=== PATIENT | male | born 1995 | race Caucasian/White ===

== ENCOUNTER 2016-09-27 17:50 | Emergency (ER) | payer OTHER ==
[2016-09-27 17:55] VITALS: BP 139/74
[2016-09-27] MEDS ORDERED: Ondansetron INJ* 2 MG/ML VIAL ONE (18:35)
[2016-09-27 18:41] LABS: Hematocrit 42 % (42-52); Mean Corpuscular HGB Conc 34 g/dl (31-36); Mean Corpuscular Hemoglobin 29 pg (27-31); Mean Corpuscular Volume 88 fL (80-94); Mean Platelet Volume 9 um3 (7.4-10.4); Red Blood Count 4.76 10^6/ul (4.0-5.4); Red Cell Distribution Width 13 % (10.5-15); White Blood Count 9.8 10^3/ul (3.5-10.8)
[2016-09-27 18:52] LABS: Albumin 4.4 g/dL (3.2-5.2); C Reactive Protein 28.02 mg/L (< 5.00); Calcium 9.4 mg/dL (8.6-10.3); EGFR African American 120.2 (>60); EGFR Non-African American 93.4 (>60); Globulin 3.7 g/dL (2-4); Potassium 3.8 mmol/L (3.5-5.0); Total Protein 8.1 g/dL (6.4-8.9)
--- NOTE | 2016-09-27 19:07 | RAD ---
INDICATION: Fever COMPARISON: Similar chest x-ray dated May 25 TECHNIQUE: PA and lateral views of the chest were obtained. FINDINGS: The heart and mediastinum are normal in size and contour. The lungs are grossly clear. There is no evidence of large pleural effusion. Visualized bones are normal for the patient's age. There is no radiographic evidence of free air beneath the diaphragm IMPRESSION: No radiographic evidence of acute cardiopulmonary disease.
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
== END 2016-09-27 20:05 | disposition home or self-care (01) ==
LOC: ED 17:50
DX: R11.2 Nausea with vomiting, unspecified (principal); F17.210 Nicotine dependence, cigarettes, uncomplicated
CPT/HCPCS: 36415; 71020; 80053; 83605; 85025; 86140; 86703; 87040; 99283; J2405

== ENCOUNTER 2017-01-27 17:31 | Emergency (ER) | payer OTHER ==
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
[2017-01-27] MEDS ORDERED: cefTRIAXone VIAL(*) 1,000 MG VIAL IM ONE (20:03)
[2017-01-27] MEDS ORDERED: Lidocaine 1% MPF* 2 ML VIAL INJ ONE (20:04)
== END 2017-01-27 20:49 | disposition left against medical advice (07) ==
LOC: UCEAST 17:31
DX: L03.114 Cellulitis of left upper limb (principal); L03.113 Cellulitis of right upper limb; F17.210 Nicotine dependence, cigarettes, uncomplicated; F11.20 Opioid dependence, uncomplicated
CPT/HCPCS: 96372; 99212; G0463; J0696

== ENCOUNTER 2017-01-29 12:18 | Emergency (ER) | payer OTHER ==
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
--- NOTE | 2017-01-29 14:24 | RAD ---
Indication: Evaluate for abscess in the left palm with swelling. Real-time sonography of the palmar aspect of the hand in the hyperthenar region was obtained. There is no evidence of abnormal fluid collections. Vascular structures and tendinous structures are unremarkable. IMPRESSION: No evidence of fluid collections are noted in the palmar aspect of the left hand.
[2017-01-29 14:29] VITALS: BP 107/53
[2017-01-29 14:31] LABS: Hematocrit 39 % (42-52); Mean Corpuscular HGB Conc 33 g/dl (31-36); Mean Corpuscular Hemoglobin 29 pg (27-31); Mean Corpuscular Volume 89 fL (80-94); Mean Platelet Volume 9 um3 (7.4-10.4); Red Blood Count 4.45 10^6/ul (4.0-5.4); Red Cell Distribution Width 15 % (10.5-15); White Blood Count 7.3 10^3/ul (3.5-10.8)
[2017-01-29 14:50] LABS: BUN/Creatinine Ratio 13.2 (8-20); C Reactive Protein 17.94 mg/L (< 5.00); Calcium 8.9 mg/dL (8.6-10.3); EGFR Non-African American 104.2 (>60); Globulin 3.2 g/dL (2-4); Potassium 4.3 mmol/L (3.5-5.0); Total Bilirubin 0.6 mg/dL (0.2-1.0); Total Protein 7.2 g/dL (6.4-8.9)
== END 2017-01-29 15:03 | disposition home or self-care (01) ==
LOC: ED 12:18
DX: L03.90 Cellulitis, unspecified (principal)
CPT/HCPCS: 36415; 80053; 85025; 86140; 99282

== ENCOUNTER 2017-06-03 13:46 | Inpatient (IN) | payer SELFPAY ==
[2017-06-03 14:47] LABS: Hematocrit 29 % (42-52); Hemoglobin 9.2 g/dl (14.0-18.0); Mean Corpuscular HGB Conc 32 g/dl (31-36); Mean Corpuscular Hemoglobin 28 pg (27-31); Mean Corpuscular Volume 87 fL (80-94); Mean Platelet Volume 8 um3 (7.4-10.4); Red Blood Count 3.32 10^6/ul (4.0-5.4); Red Cell Distribution Width 15 % (10.5-15); White Blood Count 11.9 10^3/ul (3.5-10.8)
[2017-06-03 14:51] LABS: Albumin 3.7 g/dL (3.2-5.2); Calcium 8.8 mg/dL (8.6-10.3); EGFR African American 155.5 (>60); EGFR Non-African American 120.9 (>60); Globulin 3.8 g/dL (2-4); Potassium 3.7 mmol/L (3.5-5.0); Total Bilirubin 0.4 mg/dL (0.2-1.0); Total Protein 7.5 g/dL (6.4-8.9)
--- NOTE | 2017-06-03 15:00 | RAD ---
INDICATION: Sepsis COMPARISON: Comparison is made with a prior x-ray study from September 27, 2016. TECHNIQUE: A portable view of the chest was obtained. FINDINGS: Cardiac and mediastinal contours appear to be within normal limits. The lungs are clear. No pleural effusion is seen. IMPRESSION: NO EVIDENCE FOR ACUTE DISEASE.
[2017-06-03] MEDS ORDERED: Vancomycin(*) 1,000 MG ADVAN IVPB ONE (15:54)
[2017-06-03] MEDS ORDERED: Vancomycin(*) 1,000 MG - ED ONCE IVPB ONE ×2 (16:00)
[2017-06-03] MEDS ORDERED: Vancomycin(*) 1,000 MG VIAL IVPB SCH (16:00)
[2017-06-03] MEDS: NS 0.9% 1000 ML* 2,500 ML IV ONE (16:04)
--- NOTE | 2017-06-03 16:24 | ED ---
Rossi Trotter Nilda, scribed for Liz Ely MD on 06/03/17 at 1421 . Lower Extremity - HPI Summary HPI Summary: This patient is a 21 year old M presenting to [facility] accompanied by brother with a chief complaint of skin infection on bilateral legs s/p injecting an unknown drug into legs for the past 2 months. He last used drugs today. Symptoms aggravated by substance abuse and alleviated by nothing. Patient reports swelling, purulence, pain, and erythema of bilateral LE, as well as fever. PMHx substance abuse (heroin). - History of Current Complaint Chief Complaint: EDGeneral Stated Complaint: RIGHT LEG ABSCESS Time Seen by Provider: 06/03/17 13:51 Hx Obtained From: Patient Mechanism Of Injury: Other - injections from substance abuse Onset/Duration: Still Present Severity Currently: Severe Pain Intensity: 0 Pain Scale Used: 0-10 Numeric Timing: Constant Location: Is Diffuse Associated Signs And Symptoms: Positive: Swelling, Redness, Fever, Other - ulceration and purulence Aggravating Factor(s): Other - substance abuse Alleviating Factor(s): Nothing - Allergies/Home Medications Allergies/Adverse Reactions: Allergies Allergy/AdvReac Type Severity Reaction Status Date / Time No Known Allergies Allergy Verified 05/19/16 11:21 PMH/Surg Hx/FS Hx/Imm Hx Endocrine/Hematology History: Denies: Hx Diabetes, Hx Thyroid Disease Cardiovascular History: Denies: Hx Hypertension Respiratory History: Reports: Hx Asthma Denies: Hx Chronic Obstructive Pulmonary Disease (COPD) GI History: Denies: Hx Ulcer Psychiatric History: Reports: Hx Substance Abuse - Surgical History Surgery Procedure, Year, and Place: None Infectious Disease History: No Infectious Disease History: Denies: Hx Clostridium Difficile, Hx Hepatitis, Hx Human Immunodeficiency Virus (HIV), Hx of Known/Suspected MRSA, Hx Shingles, Hx Tuberculosis, Hx Known/ Suspected VRE, Hx Known/Suspected VRSA, History Other Infectious Disease, Traveled Outside the [place] in Last 30 Days - Family History Known Family History: Positive: Diabetes - maternal cousin, Other - father EtOH ; grandmother Breast CA Negative: Hypertension Family History: FAM HX UNKNOWN TO PT - Social History Alcohol Use: None Hx Substance Use: Yes Substance Use Type: Reports: Heroin, Marijuana, Other Substance Use Comment - Amount & Last Used: iv drug use Hx Tobacco Use: Yes Smoking Status (MU): Heavy Every Day Tobacco Smoker Amount Used/How Often: 1/2 PPD Review of Systems Positive: Fever Positive: Edema Positive: Other - both legs and thighs: erythema, areas of ulceration, pain, and pus All Other Systems Reviewed And Are Negative: Yes Physical Exam Triage Information Reviewed: Yes Vital Signs On Initial Exam: Initial Vitals Temp Pulse Resp BP Pulse Ox 99 F 81 16 125/65 100 06/03/17 13:49 06/03/17 13:49 06/03/17 13:49 06/03/17 13:49 06/03/17 13:49 Vital Signs Reviewed: Yes Appearance: Positive: Well-Appearing, No Pain Distress Skin: Positive: Warm, Skin Color Reflects Adequate Perfusion, Dry Eyes: Positive: EOMI, SHANE, Other: - pupils 5 mm in diameter ENT: Positive: Pharynx normal, TMs normal Neck: Positive: Supple, Nontender Respiratory/Lung Sounds: Positive: Clear to Auscultation, Breath Sounds Present. Negative: Rales, Rhonchi, Wheezes Cardiovascular: Positive: Tachycardia, Other - no gallop. Negative: Murmur, Rub Abdomen Description: Positive: Nontender, Soft, Other: - no rebound. Negative: Distended, Guarding Bowel Sounds: Positive: Present Musculoskeletal: Positive: Strength/ROM Intact, Other - extensive edema and erythema to both legs and thighs, multiple areas of ulceration, discharge of pus from wounds with palpation Neurological: Positive: Sensory/Motor Intact, Alert, Oriented to Person Place, Time, CN Intact II-III Psychiatric: Positive: Affect/Mood Appropriate Diagnostics - Vital Signs Vital Signs Temp Pulse Resp BP Pulse Ox 06/03/17 13:49 99 F 81 16 125/65 100 - Laboratory Lab Results: Lab Results 06/03/17 06/03/17 06/03/17 Range/Units 14:21 14:21 14:21 WBC 11.9 H (3.5-10.8) 10^3/ul RBC 3.32 L (4.0-5.4) 10^6/ul Hgb 9.2 L (14.0-18.0) g/dl Hct 29 L (42-52) % MCV 87 (80-94) fL MCH 28 (27-31) pg MCHC 32 (31-36) g/dl RDW 15 (10.5-15) % Plt Count 348 (150-450) 10^3/ul MPV 8 (7.4-10.4) um3 Neut % (Auto) 80.9 (38-83) % Lymph % (Auto) 10.0 L (25-47) % Wheeler % (Auto) 7.7 (1-9) % Eos % (Auto) 1.3 (0-6) % Baso % (Auto) 0.1 (0-2) % Absolute Neuts (auto) 9.7 H (1.5-7.7) 10^3/ul Absolute Lymphs (auto) 1.2 (1.0-4.8) 10^3/ul Absolute Monos (auto) 0.9 H (0-0.8) 10^3/ul Absolute Eos (auto) 0.2 (0-0.6) 10^3/ul Absolute Basos (auto) 0 (0-0.2) 10^3/ul Absolute Nucleated RBC 0 10^3/ul Nucleated RBC % 0 INR (Anticoag Therapy) 1.21 H (0.89-1.11) APTT 33.3 (26.0-36.3) seconds Sodium 135 (133-145) mmol/L Potassium 3.7 (3.5-5.0) mmol/L Chloride 100 L (101-111) mmol/L Carbon Dioxide 28 (22-32) mmol/L Anion Gap 7 (2-11) mmol/L BUN 8 (6-24) mg/dL Creatinine 0.80 (0.67-1.17) mg/dL Est GFR ( Amer) 155.5 (>60) Est GFR (Non-Af Amer) 120.9 (>60) BUN/Creatinine Ratio 10.0 (8-20) Glucose 106 H (70-100) mg/dL Lactic Acid (0.5-2.0) mmol/L Calcium 8.8 (8.6-10.3) mg/dL Total Bilirubin 0.40 (0.2-1.0) mg/dL AST 23 (13-39) U/L ALT 25 (7-52) U/L Alkaline Phosphatase 78 (34-104) U/L Troponin I 0.00 (<0.04) ng/mL Total Protein 7.5 (6.4-8.9) g/dL Albumin 3.7 (3.2-5.2) g/dL Globulin 3.8 (2-4) g/dL Albumin/Globulin Ratio 1.0 (1-3) 06/03/17 Range/Units 14:21 WBC (3.5-10.8) 10^3/ul RBC (4.0-5.4) 10^6/ul Hgb (14.0-18.0) g/dl Hct (42-52) % MCV (80-94) fL MCH (27-31) pg MCHC (31-36) g/dl RDW (10.5-15) % Plt Count (150-450) 10^3/ul MPV (7.4-10.4) um3 Neut % (Auto) (38-83) % Lymph % (Auto) (25-47) % Wheeler % (Auto) (1-9) % Eos % (Auto) (0-6) % Baso % (Auto) (0-2) % Absolute Neuts (auto) (1.5-7.7) 10^3/ul Absolute Lymphs (auto) (1.0-4.8) 10^3/ul Absolute Monos (auto) (0-0.8) 10^3/ul Absolute Eos (auto) (0-0.6) 10^3/ul Absolute Basos (auto) (0-0.2) 10^3/ul Absolute Nucleated RBC 10^3/ul Nucleated RBC % INR (Anticoag Therapy) (0.89-1.11) APTT (26.0-36.3) seconds Sodium (133-145) mmol/L Potassium (3.5-5.0) mmol/L Chloride (101-111) mmol/L Carbon Dioxide (22-32) mmol/L Anion Gap (2-11) mmol/L BUN (6-24) mg/dL Creatinine (0.67-1.17) mg/dL Est GFR ( Amer) (>60) Est GFR (Non-Af Amer) (>60) BUN/Creatinine Ratio (8-20) Glucose (70-100) mg/dL Lactic Acid 0.9 (0.5-2.0) mmol/L Calcium (8.6-10.3) mg/dL Total Bilirubin (0.2-1.0) mg/dL AST (13-39) U/L ALT (7-52) U/L Alkaline Phosphatase (34-104) U/L Troponin I (<0.04) ng/mL Total Protein (6.4-8.9) g/dL Albumin (3.2-5.2) g/dL Globulin (2-4) g/dL Albumin/Globulin Ratio (1-3) Result Diagrams: 06/03/17 14:21 06/03/17 14:21 Lab Statement: Any lab studies that have been ordered have been reviewed, and results considered in the medical decision making process. - Radiology CXR Radiology Interpretation Completed By: Radiologist - NAD. ED physician reviewed this report and agrees. - EKG 1426 Cardiac Rate: NL - 84 bpm EKG Rhythm: Sinus Rhythm Ectopy: : PVCs Re-Evaluation - Re-Evaluation First Eval Re-Evaluation Time: 16:11 Comment: Spoke to patient about pain management. He would like to use methadone and be weaned off methadone. Lower Extremity Course/Dx - Course Course Of Treatment: [1540] Dr. Toure (hospitalist) agrees to admit patient. 21 yo male injecting "euphoria" into his legs and thighs with subsequent cellulitis and necrotic areas to these areas. Pt started on vanco seen by Dr. Fink/Natalie and admitted by Mesfin/Xi. Pt wants to wean off opiates by taking 15mg of methadone and weaning off during stay here he does not want to go on any other substance - Diagnoses Provider Diagnoses: Cellulitis, IVDU (intravenous drug user) - Physician Notifications Discussed Care Of Patient With: Gerri VALLES for Surgical Unit Time Discussed With Above Provider: 14:20 Instructed by Provider To: Other - agrees to admission to hospitalist and surgical consult. Discharge - Discharge Plan Condition: Stable Disposition: ADMITTED TO [facility] Referrals: Beti Villarreal MD [Primary Care Provider] - The documentation as recorded by the Rossi swenson Nilda accurately reflects the service I personally performed and the decisions made by me, Liz Ely MD.
[2017-06-03] MEDS ORDERED: NS 0.9% 1000 ML* 1,000 ML IV SCH (16:30)
[2017-06-03] MEDS ORDERED: Ondansetron INJ* 2 MG/ML VIAL IV PRN (16:32)
[2017-06-03] MEDS ORDERED: Acetaminophen TAB* 325 MG PO PRN (16:32)
[2017-06-03] MEDS ORDERED: LORazepam INJ* 2 MG/ML 1 ML VIAL IV PUSH PRN (16:40)
[2017-06-03] MEDS ORDERED: cloNIDine TAB* 0.1 MG PO PRN (16:44)
[2017-06-03] MEDS ORDERED: Vancomycin per Pharmacy* NOTE FOLLOW UP PRN (16:45)
[2017-06-03] MEDS ORDERED: Methadone TAB* 10 MG PO ONE ×2 (16:46→16:47)
[2017-06-03 16:53] LABS: C Reactive Protein 166.02 mg/L (< 5.00)
[2017-06-03] MEDS ORDERED: Vancomycin(*) 1,000 MG in NS 0.9% 250 ML* 250 ML IVPB SCH (17:00)
[2017-06-03 17:42] LABS: Urine Bilirubin Negative (Negative); Urine Glucose Negative (Negative); Urine Nitrite Negative (Negative)
[2017-06-03 17:47] LABS: Benzodiazepine Urine Screen None Detected (None Detect)
[2017-06-03] MEDS: Enoxaparin(*) 40 MG/0.4 ML SYR SUBCUT SCH (18:08)
--- NOTE | 2017-06-03 21:52 | HP ---
MEDICINE HISTORY AND PHYSICAL: DATE OF ADMISSION: 06/03/17 PROVIDER: Shreya Clemons NP ATTENDING PHYSICIAN: Ayala Toure MD* (dictated by Shreya Clemons NP) PRIMARY CARE PROVIDER: None. CONSULTING PHYSICIANS: Pasquale Flores MD, Infectious Disease and Kwame Fink MD, Surgery. CHIEF COMPLAINT: Leg wounds. HISTORY OF PRESENT ILLNESS: This is a 21-year-old male patient, originally from [place], who presents to the emergency department today with chief complaint of skin infection to the bilateral legs after injecting an unknown drug into his leg for the past 2 months. The patient states that he was using an opiate-like medication that may contain fentanyl, possibly mixed with what he calls "bad heroin." Nursing staff and ED provider state that the patient has referred to this medication as both Krokodil and euphoria. The patient's onset of leg wounds started approximately 2 months ago potentially longer, but the patient endorses 2 months as when he started treating the legs at home. He states that he was encouraging drainage by squeezing and prodding at the wounds , cleaning them, and then wrapping the legs with bandages. He is also being crushing a medication that he obtained from [place] and placing it in the wound. The medication is called Streptocidum. He reports subjective fever and chills that have been off and on though he cannot tell me the time of this. He states that on occasions his heart fells like it is racing and on occasions, he feels like there is pressure in his chest, which he attributes to heartburn. The patient states that he is frustrated and he would have sought treatment sooner, but he has not had insurance. He has been trying to obtain insurance, but this has been difficult for him and has prevented him from getting on maintenance medications for his opiate addiction as well as prevented him from getting into a detox program. Here in the ED, the patient was seen by the surgery group who agreed for admission and recommended that the patient be seen in consultation by the wound clinic. He will most likely also need debridement, but they will continue the consultation to tomorrow. In regards to the patient's labs, he has a WBC count of 11.9, H and H of 9.2 and 29 and a CRP of 166. PAST MEDICAL HISTORY: Significant for opiate abuse. HOME MEDICATIONS: None. ALLERGIES: No known allergies. FAMILY HISTORY: Reviewed and noncontributory. SOCIAL HISTORY: The patient reports social tobacco use. He denies alcohol use. He is an opiate injector using the aforementioned drugs as well as marijuana. His last injection was 6 a.m. this morning. He is currently staying with a friend. He does have local family. His mother, Yandy Fisher, is his surrogate decision maker in the event of emergency. REVIEW OF SYSTEMS: As per HPI. PHYSICAL EXAMINATION GENERAL: This is a well appearing, interactive, young male, who is sitting up in the ED stretcher, in no acute distress. VITAL SIGNS: Temperature 99, heart rate 75, respiratory rate 16, blood pressure 118/49, and O2 saturation is 100% on room air. HEENT: Head is atraumatic, normocephalic. Face is symmetrical. Pupils are equal, round and reactive to light. Extraocular muscles are intact. Pupils are 5 mm in diameter. Oral mucosa appears to be moist. There is no oropharyngeal exudate or erythema. NECK: Supple. No lymphadenopathy appreciated. PULMONARY: Lungs are clear to auscultation. No accessory muscle use. CARDIAC: S1, S2 heart sounds. Regular rate and rhythm. There is a soft systolic murmur heard best along the right upper sternal border. There is no peripheral edema. Distal pulses are present and 2+. ABDOMEN: Soft, nontender, nondistended. Bowel sounds are normoactive. MUSCULOSKELETAL: The patient has full range of motion. EXTREMITIES: Multiple areas of ulceration with necrosis noted to the left upper thigh. There was localized edema at the site of the wounds as well as noted pus and discharge from the right lower upper extremity wounds along the inner thigh when palpated. Wounds extend from thighs into the lower legs. NEURO: No focal deficits. Cranial nerves II through XII are grossly intact. The patient moves all extremities. PSYCH: He is alert and oriented x3. The patient's insight is very poor. Affect is mostly appropriate. LABORATORY DATA/DIAGNOSTIC STUDIES: CBC: WBC 11.9, hemoglobin 9.2, hematocrit 29, platelet count 348. CMP: Sodium 135, potassium 3.7, chloride 100, carbon dioxide 28, BUN 8, creatinine 0.8, glucose 106. Lactic acid 0.9. Calcium 8.8. Total bilirubin 0.4, AST 23, ALT 25, alk phos 78. Troponin 0.00. CRP 166. EKG reviewed, shows normal sinus rhythm with rate of 84, no ST or T wave changes. Chest x-ray shows no evidence for acute disease. ASSESSMENT AND PLAN: This is a 21-year-old male patient who presents today with leg ulcerations or wounds secondary to opiate injection. He will be admitted to the Medicine for: 1. Multiple leg wounds and ulcerations. Admit to Medicine. The patient has been started on vancomycin in the ER and we will continue him on the vanco as well as Zosyn. I have requested an ID consult. Surgery is following and we will reevaluate tomorrow as well as consult the wound clinic. Additionally, a wound culture has been obtained. I have collected drainage from the wounds along the right upper thigh and I am awaiting culture results. Blood cultures have also been drawn. The patient will require long-term care in regards to these wounds. 2. History of opiate abuse. The patient follows with Dr. Ely in the outpatient clinic for injection users here in [place]. He has been started on methadone to help lessen the symptoms of withdrawal. The patient has previously been on Suboxone, but had problems with the Suboxone, did not tolerate the medication well. He has previously utilized methadone to help him get through the withdrawal and was tapered off the methadone. He was hoping not to use narcotics if possible. The patient received the first dose of methadone here in the ER. At this point in time, I will continue him on 15 mg and request a consult with Dr. Win tomorrow in order to help us determine how to taper the patient off of the medication safely prior to discharge. Additionally, I have ordered p.r.n. clonidine and lorazepam to be used as needed. Given that the patient is at risk for endocarditis, a transthoracic echocardiogram has been ordered. Additionally, I have added on HIV and hep C screening given his heavy injection history. 3. FEN. The patient is ordered with continuous fluids for hemodynamic support as well as a regular diet. 4. DVT prophylaxis. Subcu Lovenox. 5. Code status. He is a full code. TIME SPENT: Time spent on this admission was greater than 65 minutes with more than half the time spent [id number] with the patient obtaining history and physical, performing the physical examination, and reviewing the plan of care. Plan of care was reviewed with my attending, Dr. Toure, who is in agreement. SHREYA CLEMONS NP ADDENDUM TO HISTORY AND PHYSICAL: Jas Fisher is a 21-year-old male with history of drug use who presents complaining of leg wounds. The patient has bilateral leg cellulitis, small abscesses, healing ulcers on bilateral legs due to history of chronic narcotic use and injecting in his lower extremity. Surgery was consulted on the patient. Recommended for the time being intravenous antibiotics. the patient in the morning. For the time being, we are going to treat him with broad- spectrum IV antibiotics and blood cultures are going to be obtained. For further details of the patient's presentation and plan, please see history and physical dictated by Shreya Clemons on 06/03/17, with which I agree. Ayala Toure MD [id number]/CPS #: [id number]/CPS #: [id number] CHIKIS
[2017-06-03] MEDS: Vancomycin(*) 1,000 MG in NS 0.9% 250 ML* 250 ML IVPB SCH (22:32)
--- NOTE | 2017-06-03 22:58 | HP ---
HISTORY AND PHYSICAL: ADDENDUM: Jas Fisher is a 21-year-old male with history of drug use who presents complaining o f leg wounds. The patient has bilateral leg cellulitis, small abscesses, healing ulcers on bilatera l legs due to history of chronic narcotic use and injecting in his lower extremity. Surgery was con sulted on the patient. Recommended for the time being intravenous antibiotics. the patient in the morning. For the time being, we are going to treat him with broad- spectrum IV antibiotics a nd blood cultures are going to be obtained. For further details of the patient's presentation and p tom, please see history and physical dictated by Izzy Layne on 06/03/17, with which I agree. [id number]/[facility] #: [id number]
[2017-06-04] MEDS ORDERED: Mouth Piece, Nicotine* 1 EACH CARTRIDGE INH ONE (05:04)
[2017-06-04] MEDS ORDERED: LORazepam INJ* 2 MG/ML 1 ML VIAL IV PUSH ONE (05:06)
[2017-06-04] MEDS ORDERED: LORazepam INJ* 2 MG/ML 1 ML VIAL ONE (05:10)
[2017-06-04] MEDS ORDERED: Morphine INJ* 4 MG/ML 1 ML CARPUJECT ONE (05:11)
[2017-06-04] MEDS: Morphine INJ* 4 MG/ML 1 ML CARPUJECT IV PRN ×3 (05:27→20:55)
[2017-06-04] MEDS: Nicotine Inhaler* 10 MG AMP INH PRN (05:28)
[2017-06-04] MEDS: CMCS: Melatonin (NF) 3 MG TAB PO SCH ×2 (05:40→21:32)
[2017-06-04] MEDS: Vancomycin(*) 1,000 MG in NS 0.9% 250 ML* 250 ML IVPB SCH ×2 (07:26→16:27)
[2017-06-04] MEDS ORDERED: Vancomycin Trough Check NOTE FOLLOW UP ONE ×2 (09:30→13:00)
--- NOTE | 2017-06-04 09:34 | PN ---
Hospitalist Progress Note Wounds on admission, from 06/03/17
[2017-06-04] MEDS ORDERED: ZOSYN 3.375 GM Q6H - Intermittant 30 min Infusion IVPB SCH ×2 (10:00)
[2017-06-04] MEDS: Methadone TAB* 10 MG PO SCH ×3 (10:35→20:54)
[2017-06-04] MEDS: Nicotine PATCH 21 MG/24 HR* PATCH TRANSDERM SCH (10:35)
--- NOTE | 2017-06-04 13:19 | ECHO ---
Patient: JOSEPH GIORDANO [facility] Rec#: [id number] : 1995 Date: 06/04/2017 Age: 21y Height: 182.88 cm / 72.0 in Weight: 71.67 kg / 158.0 lbs Sex: M BSA: 1.93 Room#: [facility] Admit Date#: 06/03/2017 Type: Inpatient Referring: Izzy Layne Reading: Jamie Rodriguez MD Milk Drying Machine Operator: Janine Olivas COREY CC: Beti Villarreal MD CC: Pasquale Flores MD Transthoracic Echocardiogram Indication: Murmur BP: 100/33 HR: 65 Rhythm: NSR Findings History: Heroin IVDA,smoker,soft systolic murmur at right upper sternal border, cellulitis with + wound culture = MRSA. Technical Comments: The study quality is good. Completed at 1230. Left Ventricle: The left ventricular chamber size is normal. There is normal left ventricular systolic function. The estimated ejection fraction is 55-60%. Normal left ventricular diastolic filling is observed. Left Atrium: The left atrium is normal in size. Right Ventricle: The right ventricular cavity size is normal. The right ventricular global systolic function is normal. Right Atrium: The right atrial cavity size is normal. Aortic Valve: The aortic valve is trileaflet. There is no evidence of aortic valve thickening. There is no aortic vegetation present. Mitral Valve: The mitral valve leaflets are mildly thickened. There is no evidence of mitral regurgitation. There is no evidence of mitral stenosis. No vegetation is observed on the mitral valve. Tricuspid Valve: The tricuspid valve leaflets are normal. There is a physiologic tricuspid regurgitation. Unable to estimate the right ventricular systolic pressure. There is no tricuspid stenosis. No vegetation is observed on the tricuspid valve. Pulmonic Valve: The pulmonic valve appears normal. There is no evidence of pulmonic regurgitation. There is no pulmonic stenosis. No vegetation is observed on the pulmonic valve. Pericardium: The pericardium appears normal. Aorta: There is no dilatation of the ascending aorta. There is no dilatation of the aortic arch. There is no dilation of the aortic root. Pulmonary Artery: The main pulmonary artery appears normal. Venous: The inferior vena cava appears normal in size. There is a greater than 50% respiratory change in the inferior vena cava dimension. Summary: There was not any prior study for comparison. Conclusions The left ventricular chamber size is normal. There is normal left ventricular systolic function. The estimated ejection fraction is 55-60%. There is a physiologic tricuspid regurgitation. Unable to estimate the right ventricular systolic pressure. No obvious intracavitary masses, clots or vegetations Measurements Name Value Normal Range RVIDd (AP) 2D 2.2 cm (0.9 - 2.6) RVDdMajor (2D) 4.3 cm (2.2 - 4.4) RAd ISD 4CH 4.4 cm (3.4 - 4.9) RA (A4C)W 4.6 cm (2.9 - 4.6) IVSd (2D) 1 cm (0.6 - 1) LVPWd (2D) 1 cm (0.6 - 1) LVIDd (2D) 5 cm (3.6 - 5.4) LVIDs (2D) 3.3 cm - LV FS (2D) 35 % (25 - 45) Aortic Annulus 2 cm (1.4 - 2.6) Ao root diameter (2D) 2.9 cm (2.1 - 3.5) Ascending Ao 2.4 cm (2.1 - 3.4) Aortic arch 2.6 cm (1.8 - 3.4) Descending Ao 1.1 cm - LA dimension (AP) 2D 2.8 cm (2.3 - 3.8) LAd ISD 4CH 3.7 cm (2.9 - 5.3) LA ISD 4CH W 4 cm (2.5 - 4.5) Name Value Normal Range LA ESV SP 4CH (A/L) 39 ml - LA ESV SP 2CH (A/L) 32 ml - LA ESV BP (A/L) 36 ml - LA ESV BP (A/L) index 18.6 ml/m2 - LA ESV SP 4CH (MOD) 30 ml - LA ESV SP 2CH (MOD) 28 ml - Name Value Normal Range MV E-wave Vmax 1 m/sec - MV deceleration time 271 msec - MV A-wave Vmax 0.47 m/sec - MV E:A ratio 2.05 ratio - LV septal e' Vmax 0.16 m/sec - LV lateral e' Vmax 0.22 m/sec - LV E:e' septal ratio 6.25 ratio - LV E:e' lateral ratio 4.54 ratio - Name Value Normal Range AV Vmax 1.6 m/sec - AV VTI 37.6 cm - AV peak gradient 10.78 mmHg - AV mean gradient 5.19 mmHg - LVOT Vmax 1.2 m/sec - LVOT VTI 25.1 cm - LVOT peak gradient 5.94 mmHg - LVOT mean gradient 2.56 mmHg - Name Value Normal Range IVC diameter 2.1 cm - Name Value Normal Range PV Vmax 1.1 m/sec - PV peak gradient 4.67 mmHg -
[2017-06-04] MEDS: LORazepam INJ* 2 MG/ML 1 ML VIAL IV PUSH PRN (16:10)
[2017-06-04] MEDS: ZOSYN 3.375 GM Q8H per EXTENDED INFUSION IVPB SCH ×2 (16:10)
--- NOTE | 2017-06-04 17:49 | PN ---
Subjective Date of Service: 06/04/17 Interval History: Pt attests to pain in legs. Shaky on feet. Attests he does not know if he can last the weekend in the hospital. IV access was lost, eventually got an left EJ. ID consult. Objective Active Medications: Acetaminophen (Tylenol Tab*) 650 mg PO Q4H PRN PRN Reason: FEVER/PAIN Last Admin: 06/03/17 22:04 Dose: 650 mg Clonidine HCl (Catapres Tab*) 0.1 mg PO Q4H PRN PRN Reason: WITHDRAWAL SYMPTOMS Collagenase (Santyl 250 Mg/Gm Oint*) 1 applic TOPICAL DAILY [facility] Enoxaparin Sodium (Lovenox(*)) 40 mg SUBCUT Q24H [facility] Last Admin: 06/03/17 18:08 Dose: 40 mg Sodium Chloride (Ns 0.9% 1000 Ml*) 1,000 mls @ 100 mls/hr IV PER RATE [facility] Last Admin: 06/03/17 18:22 Dose: 100 mls/hr Piperacillin Sod/Tazobactam (Sod 3.375 gm/ Sodium Chloride) 100 mls @ 25 mls/ hr IVPB Q8H [facility] Last Admin: 06/04/17 16:10 Dose: 25 mls/hr Lorazepam (Ativan Inj*) 1 mg IV PUSH Q6H PRN PRN Reason: ANXIETY Last Admin: 06/04/17 16:10 Dose: 1 mg Melatonin (Melatonin (Nf)) 3 mg PO BEDTIME [facility] Last Admin: 06/04/17 05:40 Dose: Not Given Methadone HCl (Dolophine Tab*) 10 mg PO Q12H [facility] Last Admin: 06/04/17 10:52 Dose: 10 mg Morphine Sulfate (Morphine Inj (Syringe)*) 4 mg IV Q4H PRN PRN Reason: PAIN Last Admin: 06/04/17 16:21 Dose: 4 mg Nicotine (Nicotine Inhaler*) 10 mg INH Q2H PRN PRN Reason: CRAVING Last Admin: 06/04/17 05:28 Dose: 10 mg Nicotine (Nicotine Patch 21 Mg/24 Hr*) 1 patch TRANSDERM DAILY [facility] Last Admin: 06/04/17 10:35 Dose: 1 patch Ondansetron HCl (Zofran Inj*) 4 mg IV Q4H PRN PRN Reason: NAUSEA/VOMITING Pharmacy Profile Note (Nicotine Patch Removal Note*) 1 note FOLLOW UP [address] Vital Signs 06/03/17 06/03/17 06/03/17 17:53 20:00 22:03 Temperature 98.2 F 98.4 F Pulse Rate 78 73 Respiratory 16 16 18 Rate Blood Pressure 110/54 95/29 (mmHg) O2 Sat by Pulse 100 100 Oximetry 06/03/17 06/04/17 06/04/17 22:09 03:03 05:25 Temperature 99.7 F Pulse Rate 70 Respiratory 16 18 Rate Blood Pressure 98/45 100/33 (mmHg) O2 Sat by Pulse 100 Oximetry 06/04/17 06/04/17 06/04/17 05:27 06:25 07:50 Temperature 98.1 F Pulse Rate 74 Respiratory 20 16 20 Rate Blood Pressure 113/46 (mmHg) O2 Sat by Pulse 100 Oximetry 06/04/17 06/04/17 06/04/17 10:52 11:28 12:52 Temperature 97.1 F Pulse Rate Respiratory 20 20 Rate Blood Pressure (mmHg) O2 Sat by Pulse Oximetry 06/04/17 06/04/17 16:10 16:21 Temperature Pulse Rate Respiratory 16 16 Rate Blood Pressure (mmHg) O2 Sat by Pulse Oximetry Oxygen Devices in Use Now: None Appearance: shaky on feet. conversant but slow. Eyes: No Scleral Icterus, PERRLA Ears/Nose/Mouth/Throat: NL Teeth, Lips, Gums, Mucous Membranes Moist Neck: NL Appearance and Movements; NL JVP, Trachea Midline Respiratory: Symmetrical Chest Expansion and Respiratory Effort, Clear to Auscultation Cardiovascular: NL Sounds; No Murmurs; No JVD, RRR Abdominal: NL Sounds; No Tenderness; No Distention, No Hepatosplenomegaly Extremities: No Edema Skin: - - Dozens of ulcerations, some with purulent material on b/l medial thighs and calfs, extending to groin and just above ankles. Erythema. Neurological: NL Muscle Strength and Tone, - - oriented x3 Result Diagrams: 06/03/17 14:21 06/03/17 14:21 Additional Lab and Data: Laboratory Results - last 24 hr 06/03/17 14:21 Hepatitis C Antibody Nonreactive HIV 1&2 Antibody Nonreactive Microbiology and Other Data: Microbiology 06/03/17 16:00 Thigh Left Skin and Soft Tissue MRSA/MSSA (PCR - Final Mrsa Negative S.aureus Positive 06/03/17 16:00 Thigh Left Gram Stain - Final 06/03/17 16:00 Thigh Left Wound Culture - Preliminary Enterobacter Cloacae Staphylococcus Aureus 06/03/17 15:15 Blood Venous Aerobic Blood Culture - Preliminary No Growth Day 1 06/03/17 15:15 Blood Venous Anaerobic Blood Culture - Preliminary No Growth Day 1 06/03/17 14:21 Blood Venous Aerobic Blood Culture - Preliminary No Growth Day 1 06/03/17 14:21 Blood Venous Anaerobic Blood Culture - Preliminary No Growth Day 1 Assess/Plan/Problems-Billing Assessment: 21 year old [place] male skin popping with Krokidil and euphoria p/w with several weeks of b/l medical leg ulcers with purulent drainage. Enterobacter Cloacae and MS Staph Aureus. IV zosyn. Methadone. - Patient Problems (1) Multiple wounds of skin Current Visit: Yes Status: Acute Code(s): R23.8 - OTHER SKIN CHANGES SNOMED Code(s): 947717695 Comment: appreciete ID recs Enterobacter Cloacae, MSSA Continue Zosyn. get CT scan of legs in few days. f/u Surgical recs (2) Drug abuse, daily use Current Visit: Yes Status: Acute Code(s): F19.10 - OTHER PSYCHOACTIVE SUBSTANCE ABUSE, UNCOMPLICATED SNOMED Code(s): 311408214 Comment: continue methadone 10 mg q12 and prn ativan skin popping krokodil, euphoria TTE w/o e/o vegetation. (3) Smoker Current Visit: Yes Status: Acute Code(s): F17.200 - NICOTINE DEPENDENCE, UNSPECIFIED, UNCOMPLICATED SNOMED Code(s): 07766792 Comment: continue nicotine patch, inhaler Status and Disposition: medicine inpatient. needing IV antibiotics. Attending: Mario Gonzales
[2017-06-04] MEDS: Enoxaparin(*) 40 MG/0.4 ML SYR SUBCUT SCH (18:21)
[2017-06-04] MEDS: Collagenase 250 MG/GM OINT* 30 GM TOPICAL SCH (18:28)
[2017-06-04] MEDS: Nicotine Patch Removal NOTE FOLLOW UP SCH (21:31)
--- NOTE | 2017-06-04 21:46 | CONS ---
CONSULTATION REPORT: DATE OF CONSULT: 06/04/17 REQUESTING PROVIDER: Izzy Layne NP CONSULTING SERVICE: Infectious Disease. REASON FOR CONSULTATION: Cellulitis. IMPRESSION: 1. Bilateral lower extremity cellulitis with multiple chronic nonhealing, non- pressure related wou nds on the thighs and lower extremities on the sites of previous skin popping, somewhat purulent tevin inage. Gram-stain showed Gram positive cocci, Gram positive bacilli, Gram negative bacilli. PCR is positive for staph aureus, negative for methicillin-resistance. 2. Opioid dependence in brief remission. RECOMMENDATIONS: 1. Stop vancomycin. Continue Zosyn. Surgical consultation and wound care. 2. Methadone maintenance program. 3. HIV and hep C antibody. HISTORY OF PRESENT ILLNESS: This is a 21-year-old man with longstanding opioid dependence, admitted with bilateral lower extremity wounds and swelling. He has had these wounds for over 2 months he s aid on the sites of previous skin popping in his thighs and legs bilaterally. He has had redness, p ain, and swelling around them, some on both legs have significant purulent drainage over the last fe w days. He has had occasional chills, fever, sweats. He had been using topical over-the- counter tr eatments over the last couple of weeks. He came to the hospital yesterday because of worsening pain . He was started on vancomycin and Zosyn, which he is tolerating well. He has had no fever here. Wound cultures back with staph aureus. PAST MEDICAL HISTORY: Opioid dependence. MEDICATIONS: 1. Tylenol. 2. Enoxaparin. 3. Ativan. 4. Melatonin. 5. Methadone. 6. Nicotine inhaler, nicotine patch. 7. Zosyn 3.375 g IV every 6 hours. 8. Vancomycin 1 g IV every 6 hours. ALLERGIES: No known drug allergies. FAMILY HISTORY: No tuberculosis. SOCIAL HISTORY: [place], injecting some fentanyl and other adulterant mixed through skin popping. REVIEW OF SYSTEMS: A 14-point review of systems was negative, except as noted above. PHYSICAL EXAM: Vital Signs: Temperature is 37, heart rate 70, respiratory rate 20, blood pressure 113/46, O2 sat 100% on room air. In general, he is awake, not in distress. Neurologic: He is orie nted x3. Follows all commands. HEENT: There is no conjunctival hemorrhage. Oropharynx without le sions. Neck is supple without nuchal rigidity. Lymph Nodes: There is no inguinal, axillary, or ep itrochlear lymphadenopathy. Heart is regular rate and rhythm without murmurs, rubs, or gallops. Ana Maria ngs are clear to auscultation bilaterally. Abdomen: Soft, nontender, and nondistended. There are bowel sounds present. Skin: Bilateral lower extremity diffuse erythema and edema in both legs with medial lower leg and thigh ulcerations between 2 and 3 cm each, some with small eschars, some with purulent drainage, no crepitus. DIAGNOSTIC STUDIES/LAB DATA: White blood cell count 11.9, hemoglobin 9, platelets 348. Creatinine is 0.8. CRP 166. Urinalysis negative. Urine tox screen negative. HIV and hep C antibody negative . Please see impressions and recommendations outlined above. Thank you for asking me to see Mr. Fisher in consultation. [id number]/[facility] #: [id number]
--- NOTE | 2017-06-04 22:03 | CONS ---
CC: [facility]; Dr. Beti Villarreal SURGICAL CONSULTATION REPORT: DATE OF CONSULT: 06/04/17 HISTORY OF PRESENT ILLNESS: Jas is a nice 21-year-old gentleman, who brought himself into the [facility] room yesterday because of worsening bilateral lower leg wounds secondary to skin popping of a newer opiate into his skin because of his failure to be able to inject into his veins. The patient states he has been doing this for the past 2 month at [facility] in this fashion. He is a longstanding heroin user, who had sometime off, only restarted again recently. Moving around his legs from spot to spot where the injury is not as bad. He describes injecting approximately 60 cc into the skin ev paulino 2 to 3 days for approximately a 72-hour high. The legs would show wounding and this would be so mewhat superficial. He would clean this in the bathtub with soap and often using Jacuzzi to do so a nd move to other portions of the legs. He presented because of one area at the right lower leg was more painful than usual and also purulent drainage at the upper most. Here on multiple occasions, rachael nugent has had purulent drainage that he has expressed on his own. He noted that these wounds do communi sohan with each other and he had been watching this. Additionally, friends have told him to come int o the hospital. His last high was approximately 3 days ago. He describes that last night was diffi cult and he wanted to sign out AMA. The patient feels that the areas are somewhat better than at their worse, which was approximately 2 to 3 days ago. PAST MEDICAL HISTORY: No significant past medical history. PHYSICAL EXAM: He is afebrile and has been so since arrival. Normal heart rate. Blood pressure nor mal. He is alert and oriented x3, in no apparent distress. Neck shows no lymphadenopathy. Arms sh ow no evidence of lesions. Legs bilaterally show multiple areas of ulcerations and eschar with nohemy ration and skin changes. There is tenderness along these ulcers, but no crepitus. The patient did have active drainage from one of the openings in the right upper thigh. I expressed approximately a tablespoon of pus from this site, it is foul smelling. The patient had cultures taken yesterday an d is consistent with staph aureus. The patient is currently being treated with Zosyn. The patient has been treating the wounds by expressing pus, doing Jacuzzis, and putting in some agen ts that helps to dry off the wound. DIAGNOSTIC STUDIES/LAB DATA: Labs reviewed, show a white count of 11.9. Chemistry panel shows norm al BUN and creatinine. Elevated CRP of 166. Toxicology shows none detected consistent with the fly brewer's story. IMPRESSION: A 21-year-old male with opiate addiction who has been skin popping due to lack of veins , who now has multiple punctate lesions that are actively draining at sites, but no undrained collec tion is apparent. On physical exam, no evidence of necrotizing fasciitis, but these wounds do go do wn toward the muscle layer, multiple sites. Plan will be for topical treatment. The patient should undergo shower regularly with placement of Santyl, dressing daily over these sites. My biggest con cern is that the patient may sign out AMA and return and I have discussed this with the social worke r they need to activate and expedite particularly a detox setting for Mr. Fisher. We will not fo llow him on a regular basis, but rather on a every 3-day basis. [id number]/[facility] #: [id number]
[2017-06-05] MEDS: ZOSYN 3.375 GM Q8H per EXTENDED INFUSION IVPB SCH ×6 (00:02→15:17)
[2017-06-05] MEDS: LORazepam INJ* 2 MG/ML 1 ML VIAL IV PUSH PRN ×3 (00:10→19:28)
[2017-06-05] MEDS: Morphine INJ* 4 MG/ML 1 ML CARPUJECT IV PRN ×3 (06:34→19:28)
[2017-06-05] MEDS: Nicotine PATCH 21 MG/24 HR* PATCH TRANSDERM SCH (08:47)
[2017-06-05] MEDS: Methadone TAB* 10 MG PO SCH ×2 (08:48→20:36)
[2017-06-05] MEDS: Collagenase 250 MG/GM OINT* 30 GM TOPICAL SCH (08:49)
[2017-06-05 09:18] LABS: Hematocrit 32 % (42-52); Hemoglobin 10.2 g/dl (14.0-18.0); Mean Corpuscular HGB Conc 32 g/dl (31-36); Mean Corpuscular Hemoglobin 28 pg (27-31); Mean Corpuscular Volume 88 fL (80-94); Mean Platelet Volume 7 um3 (7.4-10.4); Red Blood Count 3.59 10^6/ul (4.0-5.4); Red Cell Distribution Width 15 % (10.5-15); White Blood Count 10.4 10^3/ul (3.5-10.8)
[2017-06-05 10:11] LABS: BUN/Creatinine Ratio 5.1 (8-20); Calcium 8.8 mg/dL (8.6-10.3); EGFR African American 160.1 (>60); EGFR Non-African American 124.5 (>60); Potassium 3.7 mmol/L (3.5-5.0)
[2017-06-05] MEDS: Nicotine Inhaler* 10 MG AMP INH PRN ×2 (10:22→15:17)
[2017-06-05] MEDS: Enoxaparin(*) 40 MG/0.4 ML SYR SUBCUT SCH (16:33)
--- NOTE | 2017-06-05 16:40 | PN ---
Subjective Date of Service: 06/05/17 Interval History: Pt says he has had a hard time staying in the hospital this long, expected to leave in less than a day. His family has been pushing him to come for some time now. Objective Active Medications: Acetaminophen (Tylenol Tab*) 650 mg PO Q4H PRN PRN Reason: FEVER/PAIN Last Admin: 06/03/17 22:04 Dose: 650 mg Clonidine HCl (Catapres Tab*) 0.1 mg PO Q4H PRN PRN Reason: WITHDRAWAL SYMPTOMS Collagenase (Santyl 250 Mg/Gm Oint*) 1 applic TOPICAL DAILY [facility] Last Admin: 06/05/17 08:49 Dose: 1 applic Enoxaparin Sodium (Lovenox(*)) 40 mg SUBCUT Q24H [facility] Last Admin: 06/05/17 16:33 Dose: 40 mg Sodium Chloride (Ns 0.9% 1000 Ml*) 1,000 mls @ 100 mls/hr IV PER RATE [facility] Last Admin: 06/03/17 18:22 Dose: 100 mls/hr Piperacillin Sod/Tazobactam (Sod 3.375 gm/ Sodium Chloride) 100 mls @ 25 mls/ hr IVPB Q8H [facility] Last Admin: 06/05/17 15:17 Dose: 25 mls/hr Lorazepam (Ativan Inj*) 1 mg IV PUSH Q6H PRN PRN Reason: ANXIETY Last Admin: 06/05/17 10:24 Dose: 1 mg Melatonin (Melatonin (Nf)) 3 mg PO BEDTIME [facility] Last Admin: 06/04/17 21:32 Dose: 3 mg Methadone HCl (Dolophine Tab*) 10 mg PO Q12H [facility] Last Admin: 06/05/17 08:48 Dose: 10 mg Morphine Sulfate (Morphine Inj (Syringe)*) 4 mg IV Q4H PRN PRN Reason: PAIN Last Admin: 06/05/17 15:16 Dose: 4 mg Nicotine (Nicotine Inhaler*) 10 mg INH Q2H PRN PRN Reason: CRAVING Last Admin: 06/05/17 15:17 Dose: 10 mg Nicotine (Nicotine Patch 21 Mg/24 Hr*) 1 patch TRANSDERM DAILY [facility] Last Admin: 06/05/17 08:47 Dose: 1 patch Ondansetron HCl (Zofran Inj*) 4 mg IV Q4H PRN PRN Reason: NAUSEA/VOMITING Pharmacy Profile Note (Nicotine Patch Removal Note*) 1 note FOLLOW UP [address] Last Admin: 06/04/17 21:31 Dose: 1 note Vital Signs 06/04/17 06/04/17 06/04/17 17:10 17:21 19:35 Temperature 98.1 F Pulse Rate 95 Respiratory 16 16 18 Rate Blood Pressure 121/53 (mmHg) O2 Sat by Pulse 100 Oximetry 06/04/17 06/04/17 06/04/17 20:00 20:54 20:55 Temperature Pulse Rate Respiratory 18 18 18 Rate Blood Pressure (mmHg) O2 Sat by Pulse Oximetry 06/04/17 06/04/17 06/05/17 21:55 22:54 00:10 Temperature Pulse Rate Respiratory 18 16 16 Rate Blood Pressure (mmHg) O2 Sat by Pulse Oximetry 06/05/17 06/05/17 06/05/17 01:10 06:34 07:34 Temperature Pulse Rate Respiratory 16 16 17 Rate Blood Pressure (mmHg) O2 Sat by Pulse Oximetry 06/05/17 06/05/17 06/05/17 07:39 08:00 08:48 Temperature 98.3 F Pulse Rate 70 Respiratory 18 16 16 Rate Blood Pressure 123/59 (mmHg) O2 Sat by Pulse 100 Oximetry 06/05/17 06/05/17 06/05/17 10:24 10:48 11:21 Temperature 98.0 F Pulse Rate 81 Respiratory 16 16 18 Rate Blood Pressure 108/48 (mmHg) O2 Sat by Pulse 100 Oximetry 06/05/17 06/05/17 11:24 15:16 Temperature Pulse Rate Respiratory 15 19 Rate Blood Pressure (mmHg) O2 Sat by Pulse Oximetry Oxygen Devices in Use Now: None Appearance: NAD. Jovial/smiling whole time. Ears/Nose/Mouth/Throat: Mucous Membranes Moist Neck: NL Appearance and Movements; NL JVP Respiratory: Symmetrical Chest Expansion and Respiratory Effort, Clear to Auscultation Cardiovascular: NL Sounds; No Murmurs; No JVD, RRR Abdominal: NL Sounds; No Tenderness; No Distention, No Hepatosplenomegaly Extremities: No Edema, - - innumerable deep hemispherical and more shallow ulcers in b/l medial thigh/calf. Foul smelling. Neurological: Alert and Oriented x 3, NL Muscle Strength and Tone Nutrition: Taking PO's Result Diagrams: 06/05/17 09:07 06/05/17 09:07 Additional Lab and Data: Laboratory Results - last 24 hr 06/05/17 06/05/17 09:07 09:07 WBC 10.4 RBC 3.59 L Hgb 10.2 L Hct 32 L MCV 88 MCH 28 MCHC 32 RDW 15 Plt Count 379 MPV 7 L Neut % (Auto) 77.2 Lymph % (Auto) 14.8 L [place] % (Auto) 4.9 Eos % (Auto) 1.8 Baso % (Auto) 1.3 Absolute Neuts (auto) 8.0 H Absolute Lymphs (auto) 1.5 Absolute Monos (auto) 0.5 Absolute Eos (auto) 0.2 Absolute Basos (auto) 0.1 Absolute Nucleated RBC 0 Nucleated RBC % 0 Sodium 139 Potassium 3.7 Chloride 106 Carbon Dioxide 27 Anion Gap 6 BUN 4 L Creatinine 0.78 Est GFR ( Amer) 160.1 Est GFR (Non-Af Amer) 124.5 BUN/Creatinine Ratio 5.1 L Glucose 144 H Calcium 8.8 Microbiology and Other Data: Microbiology 06/03/17 15:15 Blood Venous Aerobic Blood Culture - Preliminary No Growth Day 2 06/03/17 15:15 Blood Venous Anaerobic Blood Culture - Preliminary No Growth Day 2 06/03/17 15:15 Blood Venous Blood Culture - Final 06/03/17 14:21 Blood Venous Aerobic Blood Culture - Preliminary No Growth Day 2 06/03/17 14:21 Blood Venous Anaerobic Blood Culture - Preliminary No Growth Day 2 06/03/17 14:21 Blood Venous Blood Culture - Final 06/03/17 16:00 Thigh Left Skin and Soft Tissue MRSA/MSSA (PCR - Final Mrsa Negative S.aureus Positive 06/03/17 16:00 Thigh Left Gram Stain - Final 06/03/17 16:00 Thigh Left Wound Culture - Final Enterobacter Cloacae Staphylococcus Aureus Peptostreptococcus Anaerobius Peptoniphilus Asaccharolyticus Finegoldia Magna Assess/Plan/Problems-Billing Assessment: 21 year old [place]ian male skin popping with Krokidil and euphoria p/w with several weeks of b/l medical leg ulcers with purulent drainage. Enterobacter Cloacae, Staphylococcus Aureus, Peptostreptococcus Anaerobius, Peptoniphilus Asaccharolyticus, Finegoldia Magna. On IV zosyn. Methadone and prn ativan. - Patient Problems (1) Multiple wounds of skin Current Visit: Yes Status: Acute Code(s): R23.8 - OTHER SKIN CHANGES SNOMED Code(s): 965566382 Comment: appreciete ID recs + Enterobacter Cloacae + Staphylococcus Aureus + Peptostreptococcus Anaerobius + Peptoniphilus Asaccharolyticus + Finegoldia Magna Continue Zosyn. Plan CT scan of legs in few days. Appreciate Surgical recs (2) Drug abuse, daily use Current Visit: Yes Status: Acute Code(s): F19.10 - OTHER PSYCHOACTIVE SUBSTANCE ABUSE, UNCOMPLICATED SNOMED Code(s): 485599868 Comment: continue methadone 10 mg q12 and prn ativan skin popping krokodil, euphoria TTE w/o e/o vegetation. (3) Smoker Current Visit: Yes Status: Acute Code(s): F17.200 - NICOTINE DEPENDENCE, UNSPECIFIED, UNCOMPLICATED SNOMED Code(s): 44454435 Comment: continue nicotine patch, inhaler Status and Disposition: medicine inpatient. needing IV antibiotics, given IVDU Hx not safe with home IV Attending: Mario Gonzales
[2017-06-05 16:42] VITALS: BP 119/43
[2017-06-05] MEDS: CMCS: Melatonin (NF) 3 MG TAB PO SCH (19:29)
[2017-06-05] MEDS: Nicotine Patch Removal NOTE FOLLOW UP SCH (21:20)
== END 2017-06-05 23:15 | disposition left against medical advice (07) | DRG 593 ==
LOC: ED 13:46 → MED 16:24
PROVIDERS: ADMIT Internal Medicine; ATTEND Internal Medicine
DX: L97.919 Non-pressure chronic ulcer of unspecified part of right lower leg with unspecified severity (principal); L02.416 Cutaneous abscess of left lower limb; L02.415 Cutaneous abscess of right lower limb; L03.116 Cellulitis of left lower limb; L03.115 Cellulitis of right lower limb; L97.929 Non-pressure chronic ulcer of unspecified part of left lower leg with unspecified severity; F11.10 Opioid abuse, uncomplicated; F12.90 Cannabis use, unspecified, uncomplicated; J45.909 Unspecified asthma, uncomplicated; Z83.3 Family history of diabetes mellitus; Z80.3 Family history of malignant neoplasm of breast; Z81.1 Family history of alcohol abuse and dependence; F17.210 Nicotine dependence, cigarettes, uncomplicated; B95.2 Enterococcus as the cause of diseases classified elsewhere; B95.61 Methicillin susceptible Staphylococcus aureus infection as the cause of diseases classified elsewhere; B95.4 Other streptococcus as the cause of diseases classified elsewhere
CPT/HCPCS: 36415; 71010; 80048; 80053; 80307; 81003; 83605; 84484; 85025; 85610; 85730; 86140; 86703; 86803; 87040; 87070; 87076; 87077; 87186; 87205; 87640; 87641; 93005; 93306; A9270-GY; J1650; J2060; J2270; J2543; J3370

== ENCOUNTER 2017-06-07 13:04 | Emergency (ER) | payer SELFPAY ==
[~2017-06-07 13:04] MED LIST: Naloxone Nasal Spray* 4 MG/0.1 ML NASAL.SPR NASAL ONE
--- NOTE | 2017-06-07 14:41 | UC ---
Cardiac Resuscitation - HPI Summary HPI Summary: 21 yo M carried in by a male friend with 2 other companions, one male, one female. Pt was unresponsive, josue, pulseless and had central cyanosis on presentation. CPR initiated immediately. Hx from friends stated that they found pt unresponsive in the bathroom with a needle in his arm. Pt was last seen well approximately 30 minutes prior to presentation. Construction Representative reported that she received a call about a possible overdose and advised that person to call 911. 911 called here and stated that [facility] was enroute. Pupils were pinpoint on presentation. Nasal narcan total 16mg was administered at 12: 55pm. Pupils increased to 3mm, but pt remained unresponsive, pulseless except with compressions, and no spontaneous respirations. Pt had good chest rise with bag valve mask. CPR was continued, BLS. Chastity arrived and assumed care of the pt. One friend left his name and phone number for medical information and this is recorded by Rosa Maria Boudreaux in her nursing note. The friends stated that the pt had bad leg wounds. Leg wounds were not visualized by myself prior to transport to [facility]. I gave verbal report to Dr. Tyrell Fajardo in [facility] ED. - History of Current Complaint Stated Complaint: HEROIN OVERDOSE Time Seen by Provider: 06/07/17 14:32 Hx Obtained From: Other: - 3 friends Hx From Patient Unobtainable Due To: Extremis Onset/Duration: Minutes/Hours: - 30 minutes Arrest Witnessed: No Down-time Before Basic Life Support Initiated: Down-time before BLS initiated: - 30 minutes Was AED Placed on Patient: No Was Defibrillating Shock Administered: No Did Patient Have Return of Spontaneous Circulation (ROSC): No - Prehospital Findings Airway: Gag Reflex Absent Breathing: Apnea Circulation/Rhythm: Asystole, Spontaneous Pulses Absent Disability/Neurologic: Unresponsive - Prehospital Intervention Airway: Chin Lift, Jaw Thrust Breathing: Oxygen-Bag, Oxygen-Mask, Oxygen-Valve Circulation/Rhythm: Chest Compressions - Prehospital Response Airway: Gag Reflex Absent Breathing: Other: - good chest rise with bag valve mask - Additional Pertinent History Primary Care Physician: ADRIEN Referred By: Jac - 911 was called prior to presentation to urgent care - Allergies/Home Medications Allergies/Adverse Reactions: Allergies Allergy/AdvReac Type Severity Reaction Status Date / Time No Known Allergies Allergy Verified 05/19/16 11:21 - Past Medical History Past Medical History: 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 - Family History Family History: 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 - Social History Social History: 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 - Review of Systems Review of Systems: 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 Physical Examination - Physical Examination Completion Of Physical Exam Limited Due To: Extremis Resuscitation: Unsuccessful - but continued by EMS in transport to the ED - Glascow Coma Score Eye Openin - None Motor: 1 - None Verbal: 1 - None Coma Scale Total: 3 Cardiac Resus. Course/Dx - Course Course Of Treatment: CPR initiated. bag valve mask breathing with good chest rise. nasal narcan total 16mg administered with no response. pt transferred via [facility] to [facility] ED - Cardiac Resuscitation Differential Dx/HPI/PQRI: Asystole, Drug Overdose - Diagnoses Provider Diagnoses: Heroin overdose, Cardiac arrest - Provider Notifications Discussed Care Of Patient With: Hai Fajardo - transfer Instructed by Provider To: MD Will See In ED - Critical Care Time Critical Care Time: 30-74 min - 30mins Discharge - Discharge Plan Condition: Critical Disposition: TR[facility]
== END 2017-06-07 14:32 | disposition short-term general hospital (02) ==
LOC: UCEAST 13:04
DX: T40.1X1A Poisoning by heroin, accidental (unintentional), initial encounter (principal); I46.8 Cardiac arrest due to other underlying condition; Y92.9 Unspecified place or not applicable
CPT/HCPCS: 99215; A9270-GY; G0463

== ENCOUNTER 2017-06-07 13:18 | Emergency (ER) | payer SELFPAY ==
[2017-06-07] MEDS ORDERED: Sodium Bicarbonate 8.4%* 50 ML SYRINGE ONE (13:19)
[2017-06-07] MEDS ORDERED: Naloxone* 0.4 MG/ML 1 ML VIAL ONE (13:19)
[2017-06-07] MEDS ORDERED: EPINEPHrine SYR 0.1 MG/ML* (1:10,000) SYRINGE ONE (13:19)
[2017-06-07 15:12] VITALS: BP 0/0
--- NOTE | 2017-06-07 22:11 | ED ---
Yumiko Trotter Alfonso, scribed for Hai Fajardo MD on 06/07/17 at 1348 . Cardiac Resuscitation - HPI Summary HPI Summary: ABC ALERT OVERHEADED ETA 8 MINUTES. This patient is a 21 year old M [facility]IBA ALS from [facility] parking lot to [facility] in cardiac arrest since EMS was called at 1248. CPR began at 1255. He was given 2 mg of epinephrine and 30 mg of Narcan [employer]. EMS reports constant asystole. Patient pronounced at 1336. IVDU. - History of Current Complaint Chief Complaint: EDCardiacArrest Stated Complaint: CARDIAC ARREST Hx Obtained From: EMS Hx From Patient Unobtainable Due To: Extremis Onset/Duration: Unknown Down-time Before Basic Life Support Initiated: Unknown Down-time Before Advanced Life Support Initiated: Unknown Was AED Placed on Patient: Yes AED Placed on Patient By: Other: - [facility] Did AED Recommend Defibrillation: No Was Defibrillating Shock Administered: No Did Patient Have Return of Spontaneous Circulation (ROSC): No - Prehospital Findings Airway: Gag Reflex Absent Breathing: Apnea Circulation/Rhythm: Asystole Disability/Neurologic: Unresponsive - Prehospital Intervention Airway: Oral Airway Breathing: Oxygen-Bag, Oxygen-Mask, Oxygen-Valve Circulation/Rhythm: Chest Compressions, Epinephrine: - Narcan 30 mgs Nasally - Prehospital Response Airway: Gag Reflex Absent Circulation/Rhythm: Asystole - Additional Pertinent History Primary Care Physician: ADRIEN - Allergies/Home Medications Allergies/Adverse Reactions: Allergies Allergy/AdvReac Type Severity Reaction Status Date / Time No Known Allergies Allergy Verified 05/19/16 11:21 - Past Medical History Past Medical History: 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 - Family History Family History: 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 - Social History Social History: Drug Use - IVDU - Review of Systems Review of Systems: 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 Physical Examination - Physical Examination Completion Of Physical Exam Limited Due To: Extremis Resuscitation: Unsuccessful - ED Findings Airway: Gag Reflex Absent Breathing: Apnea Circulation/Rhythm: Asystole Disability/Neurological: Unresponsive - ED Intervention Breathing: By ED Physician, ETT Cuffed, Intubation: Circulation/Rhythm: Chest Compressions, Epinephrine: - ED Response Airway: Gag Reflex Absent Breathing: Equal Breath Sounds, ETT in Airway:, Placement Confirmed by Auscultation, Placement Confirmed by Capnometer Circulation/Rhythm: Asystole - ED Additional Pertinent Findings Additional Pertinent Findings: Lividity - Slight mottling LUE and buttocks - Glascow Coma Score Eye Openin - None Motor: 1 - None Verbal: 1 - None Coma Scale Total: 3 Cardiac Resus. Course/Dx - Course Course Of Treatment: Mr. Fisher reportedly was found in the bathroom with a needle in his arm unresponsive by some friends. they took himn to [facility] and had the ambulance go there too. On arrival at [facility], he was found to be pulseless and apneic. CPR was started and EMS brought him in. I intubated him and we gave rounds of ACLS. U/S revealed no cardiac activity on arrival and when I pronounced him. Asystole was the only rhythm seen. - Diagnoses Provider Diagnoses: Cardiopulmonary arrest During the Visit The Following Alert/Code Occurred: ABC Alert - Critical Care Time Critical Care Time: 30-74 min Discharge - Discharge Plan Condition: Disposition: Referrals: Beti Villarreal MD [Primary Care Provider] - The documentation as recorded by the Yumiko swenson Alfonso accurately reflects the service I personally performed and the decisions made by me, Hai Fajardo MD.
== END 2017-06-07 18:48 | disposition expired ==
LOC: ED 13:18
DX: I46.9 Cardiac arrest, cause unspecified (principal)
CPT/HCPCS: 92950; 99285; J0171; J2310